=== PATIENT | male | born 1950 | race Caucasian/White ===

== ENCOUNTER → 2018-07-27 | Outpatient (CLI) | payer MEDICARE ==
--- NOTE | 2018-07-27 11:20 | DIREP ---
PROCEDURE:MAMMO BILATERAL DIAGNOSTIC COMPARISON:None. INDICATIONS:N62 Hypertrophy of breast BREAST COMPOSITION:The breasts are almost entirely fatty. DIAGNOSTIC MAMMOGRAM: Right views [DIGITAL]: MLO and CC Left views [DIGITAL]: MLO, CC, and spot compression magnification (MLO and CC) Computer Assisted Detection (CAD) was utilized. This is a male patient. There is increased density in the retroareolar aspect of the left breast with extensions radiating into the adjacent fatty tissue. This is consistent with gynecomastia. The right breast appears normal. IMPRESSION:Findings consistent with left gynecomastia. No mammographic evidence of malignancy. RECOMMENDATIONS:Clinical follow-up. OVERALL FINAL ASSESSMENT:BI-RADS 2 - Benign Mammogram Dictated by: Escobar Anand M.D. on 07/27/2018 at 10:53 AM
== END | disposition home or self-care (01) ==
LOC: RAD 10:24
PROVIDERS: ATTEND Nurse Practitioner Family
DX: N62 Hypertrophy of breast (principal)
CPT/HCPCS: 77066